=== PATIENT | male | born 1950 | race Caucasian/White ===

== ENCOUNTER 2018-02-23 21:05 | Emergency (ER) | payer MEDICARE, OTHER | END 2018-02-23 23:33 | disposition home or self-care (01) | LOC: EDH 21:05 | DX: S76.312A Strain of muscle, fascia and tendon of the posterior muscle group at thigh level, left thigh, initial encounter (principal); S70.11XA Contusion of right thigh, initial encounter; R60.0 Localized edema; E11.9 Type 2 diabetes mellitus without complications; E78.5 Hyperlipidemia, unspecified; J45.909 Unspecified asthma, uncomplicated; Z79.84 Long term (current) use of oral hypoglycemic drugs; Z79.899 Other long term (current) drug therapy; Z87.891 Personal history of nicotine dependence; W18.40XA Slipping, tripping and stumbling without falling, unspecified, initial encounter; Y93.89 Activity, other specified; Y92.89 Other specified places as the place of occurrence of the external cause; Y99.8 Other external cause status | CPT/HCPCS: 93971 ==

== ENCOUNTER 2018-12-25 12:22 | Emergency (ER) | payer OTHER | END 2018-12-25 13:10 | disposition home or self-care (01) | LOC: EDH 12:22 | DX: H11.31 Conjunctival hemorrhage, right eye (principal); E11.9 Type 2 diabetes mellitus without complications; J45.909 Unspecified asthma, uncomplicated; E78.5 Hyperlipidemia, unspecified; Z87.891 Personal history of nicotine dependence ==

== ENCOUNTER 2024-10-01 22:16 | Emergency (ER) | payer OTHER ==
[~2024-10-01] VITALS: Ht 170.2 cm; Wt 83.9 kg
--- NOTE | 2024-10-01 22:39 | ERN ---
General Chief Complaint: LOWER EXTREMITY EDEMA Stated Complaint: FALL Time Seen by MD: 22:21 Source: patient History of Present Illness Initial Comments Patient is a 74-year-old male coming in to be evaluated for right lower extremity pain. Patient states that he fell down eight days ago and states that he has some abrasions in his lower extremity and states that he was evaluated by migration specialist and no acute findings discovered. He states that today he started having more pain under the distal lower extremity in his here for further evaluation. Allergies: Coded Allergies: No Known Drug Allergies (Unverified Allergy, Unknown, 04/30/18) Past Medical History Past Medical History: Diabetes-Type II, Hypertension Past Surgical History: Other Surgical History Other: CATARACTS ROS Dictation CONSTITUTIONAL: No chills, no fever, no weakness, no diaphoresis, no malaise. HEAD/FACE: No signs of trauma. EENT: No eye pain, no blurred vision, no tearing, no double vision, no ear pain, no ear discharge, no nose pain, no nasal congestion, no throat pain, no throat swelling, no mouth pain. RESPIRATORY: No cough, no orthopnea, no SOB, no stridor, no wheezing. CARDIOVASCULAR: No chest pain, no edema, no palpitations, no syncope. GASTROINTESTINAL/ABDOMINAL: No abdominal pain, no constipation, no diarrhea, no nausea, no vomiting. GENITOURINARY: No abnormal discharge, no dysuria, no frequent urination, no hematuria. No complaints of pain in the genitals. MUSCULOSKELETAL: No back pain, no gout, no joint pain, joint swelling, muscle pain, no muscle stiffness, no neck pain. INTEGUMENTARY: No change in color, no change in hair/nails, no dryness, no lesion, no lumps, no rash. NEUROLOGICAL/PSYCH: No anxiety, not depressed, no emotional problem, no headache, no numbness, no pre-existing deficit, no history of seizures, no tremors, no weakness. HEMATOLOGIC/LYMPHATIC: Not anemic, no history of blood clots, no apparent bleeding, no bruising, glands not swollen. All Systems Negative, Except as Noted. Physical Exam Physical Exam Dictation VITAL SIGNS: Reviewed. GENERAL APPEARANCE: Alert, oriented x3, no acute distress, obese. HEAD AND FACE: Non-traumatic. EYES: PERRL, pink conjunctivas, eyelid no trauma, anterior chamber clear. EARS: Pinnas intact and no signs of trauma or erythema. Ear canals clear and no discharge. TMs no erythema. NOSE: No discharge, no bleeding. OROPHARYNX: Mouth normal, teeth no caries, tongue pink. Pharynx clear, no erythema. Tonsils no exudates, no abscesses noted. Mucous membrane moist. NECK: Supple, non-tender, no thyromegaly, no masses, no JVD, no bruits. BREAST: Deferred. CHEST: No tenderness, no crepitus, no paradoxical movement, no retractions. LUNGS: Clear, well-ventilated, symmetric, no rales, no wheezing, no rhonchi, no stridor, good breath sounds bilaterally. HEART: Regular rate, regular rhythm, no murmur, no gallops. VASCULAR: No peripheral edema. ABDOMEN: Soft, positive bowel sounds, nondistended, no guarding, nontender, no rebound, no masses no hepatomegaly, no splenomegaly, no Recio's sign, no hernias. RECTAL: Deferred. GENITAL: Deferred. NEUROLOGICAL: Normal speech, gross motor function intact, gross sensory function intact. MUSCULOSKELETAL: Neck nontender, full range of motion, back nontender, full range of motion. EXTREMITIES: Nontender, full range of motion. Right lower extremity pain on palpation ankle swelling bilateral SKIN: Color pink, dry, no turgor, no rash, no lacerations, no abrasions, no contusions. LYMPHATICS: Deferred. Results Laboratory and Microbiology Lab and Micro Result Laboratory Tests Test 10/01/24 22:23 10/01/24 22:34 White Blood Count 9.5 K/uL (4.8-10.8) Red Blood Count 3.60 MIL/uL (4.50-6.20) L Hemoglobin 11.3 g/dL (14.0-18.0) L Hematocrit 32.9 % (42-54) L Mean Corpuscular Volume 91.4 fL (79-99) Mean Corpuscular Hemoglobin 31.4 pg (27.0-33.0) Mean Corpuscular Hemoglobin Concent 34.3 g/dL (32.0-36.0) Red Cell Distribution Width 13.7 % (11.0-15.5) Platelet Count 379 K/uL (130-400) Mean Platelet Volume 9.3 fL (7.5-10.5) Immature Granulocyte % (Auto) 0.4 % (0-1) Neutrophils (%) (Auto) 52.4 % (40.0-77.0) Lymphocytes (%) (Auto) 35.3 % (21.0-51.0) Monocytes (%) (Auto) 8.4 % (3.0-13.0) Eosinophils (%) (Auto) 3.0 % (0.0-8.0) Basophils (%) (Auto) 0.5 % (0.0-5.0) Neutrophils # (Auto) 5.0 K/uL (1.8-7.7) Lymphocytes # (Auto) 3.4 K/uL (1.0-4.8) Monocytes # (Auto) 0.8 K/uL (0.1-1.0) Eosinophils # (Auto) 0.29 K/uL (0.00-0.70) Basophils # (Auto) 0.05 K/uL (0.00-0.20) Absolute Immature Granulocyte (auto 0.04 K/uL (0-1) Nucleated Red Blood Cells 0.0 % (0.0-0.19) Sodium Level 136 mmol/L (136-145) Potassium Level 3.9 mmol/L (3.5-5.1) Chloride Level 101 mmol/L (101-111) Carbon Dioxide Level 27 mmol/L (21-32) Blood Urea Nitrogen 32 mg/dL (7-18) H Creatinine 1.6 mg/dL (0.5-1.3) H Glomerular Filtration Rate Calc 45 mL/min (>90) Random Glucose 106 mg/dL (70-105) H Total Calcium 9.1 mg/dL (8.5-10.1) Total Creatine Kinase 230 U/L (21-232) Labs Reviewed?: Yes EKG/XRAY/US/CT/MRI X-RAY Comment X-ray right knee, ankle, foot-NAD Ultrasound Comment Arterial ultrasound right lower extremity-monophasic in the DP a otherwise unremarkable MDM MDM: Differential diagnosis: Fall, contusion, arteriosclerosis, PAD, PATIENT IS A 74-YEAR-OLD MALE COMING IN TO BE EVALUATED FOR RIGHT LOWER EXTREMITY PAIN AND SWELLING. PATIENT STATES HE WAS CONCERNED BECAUSE THE SWELLING HAS NOT IMPROVED HE HAS BEEN EVALUATED BY PCP AND FUEL SYSTEM MAINTENANCE SUPERVISOR AFTER HE FELL HE STATES HE GOTTEN ABRASION IN HIS RIGHT UPPER EXTREMITY IN HIS THE REASON HE WAS EVALUATED BY FUEL SYSTEM MAINTENANCE SUPERVISOR. ON PHYSICAL EXAM THERE IS SWELLING IN THE DISTAL LOWER EXTREMITY FOCUSED ON PLANTAR AREA WELL ANKLE AREA. X-RAYS AND ULTRASOUND DID NOT DISCLOSE ACUTE FINDINGS. LABORATORY WORKUP NEGATIVE FOR ACUTE FINDINGS WELL. PATIENT WILL BE DISCHARGED WITH A DIAGNOSIS OF LOWER EXTREMITY SWELLING WITH FALL. I DID ADVISE HIM TO STAY OFF HIS FEET USING THE RICE TECHNIQUE MUCH POSSIBLE. ED Course Orders Procedure Category Date Status Time Cbc With Differential LAB 10/01/24 Complete 22:22 Basic Metabolic Panel LAB 10/01/24 Complete 22:22 Creatine Kinase, Total LAB 10/01/24 Complete 22:22 Foot Comp 3+Vws Rt RAD 10/01/24 Taken 23:26 Ankle Comp 3vws Rt RAD 10/01/24 Taken 23:26 Knee 3vws Rt RAD 10/01/24 Taken 23:26 Us Arterial Unila Low US 10/01/24 Taken Ext Dupl 23:26 Vital Signs Date Time Temp Pulse Resp B/P (MAP) Pulse Ox O2 Delivery O2 Flow Rate FiO2 10/02/24 00:50 69 18 135/60 96 Room Air* 0 21 10/01/24 23:32 98.2 79 18 139/48 96 Room Air* 0 21 10/01/24 22:18 98.2 91 16 149/68 99 Room Air DX & DISP Disposition: Discharge Departure Impression: Primary Impression: Fall Additional Impressions: Lower extremity edema, Contusion of lower extremity Condition: Stable Scripts Diclofenac Sodium (Voltaren Arthritis Pain) 1 % Gel..gram. 4 GM TP BID for 7 Days, #1 TUBE Prov: RENEE MARTINEZ MD 10/02/24 Additional Instructions: FOLLOW-UP WITH PRIMARY CARE PROVIDER IN 1 TO 2 DAYS. TAKE MEDICATIONS DIRECTED HERE IN THE EMERGENCY ROOM. OKAY TO CONTINUE HOME MEDICATIONS UNLESS OTHERWISE DISCUSSED DURING YOUR VISIT IN THE EMERGENCY ROOM TODAY. RETURN TO YOUR NEAREST EMERGENCY ROOM IF SYMPTOMS WORSEN OR IF THERE IS NO IMPROVEMENT. CALL 911 IF YOU NEED IMMEDIATE ASSISTANCE. TAKE TYLENOL [id number] NEEDED AND IF NO CONTRAINDICATIONS ARE PRESENT. INCREASE ORAL HYDRATION. A WOUND CULTURE OR URINE CULTURE WAS ORDERED HERE IN THE EMERGENCY ROOM DEPARTMENT PLEASE FOLLOW-UP WITH PRIMARY CARE PROVIDER AND ADVISE THEM TO GET REPEAT PORTS FROM OUR FACILITY. IF YOU HAD ANY KIANNA WRAP/SPLINTS THAT WERE APPLIED HERE, PLEASE DO NOT REMOVE THEM UNTIL YOU SEE YOUR PRIMARY CARE OR SPECIALTY. REFERRALS: Referrals: CARMEN HERNÁNDEZ MD (PCP) Time of Disposition: 01:21 RENEE MARTINEZ MD Oct 01, 2024 22:39
[2024-10-01 22:48] LABS: BASOPHILS # (AUTO) 0.05 K/uL (0.00-0.20); BASOPHILS % (AUTO) 0.5 % (0.0-5.0); EOSINOPHILS # (AUTO) 0.29 K/uL (0.00-0.70); HEMATOCRIT 32.9 % (42-54); IMMATURE GRANULOCYTE ABSOLUTE 0.04 K/uL (0-1); LYMPHOCYTES # (AUTO) 3.4 K/uL (1.0-4.8); LYMPHOCYTES % (AUTO) 35.3 % (21.0-51.0); MEAN CORPUSCULAR HEMOGLOBIN 31.4 pg (27.0-33.0); MEAN CORPUSCULAR HGB CONC 34.3 g/dL (32.0-36.0); MEAN CORPUSCULAR VOLUME 91.4 fL (79-99); MONOCYTES # (AUTO) 0.8 K/uL (0.1-1.0); MONOCYTES % (AUTO) 8.4 % (3.0-13.0); NEUTROPHILS % (AUTO) 52.4 % (40.0-77.0); PLATELET COUNT (AUTO) 379 K/uL (130-400); RED CELL DISTRIBUTION WIDTH 13.7 % (11.0-15.5); WHITE BLOOD COUNT (AUTO) 9.5 K/uL (4.8-10.8)
[2024-10-01 22:55] LABS: CREATININE 1.6 mg/dL (0.5-1.3); POTASSIUM 3.9 mmol/L (3.5-5.1)
[2024-10-01 23:32] VITALS: TEMP 98.3
[2024-10-02 00:50] VITALS: BP 135/60; PULSE 69; RESP 18; O2SAT 96
[2024-10-02] MEDS ORDERED: DICL20GE TP (01:22)
--- NOTE | 2024-10-02 01:35 | NUR ---
PATIENT NOT FOUND IN ROOM FOR DISCHARGE INSTRUCTIONS, RESTROOMS AND LOBBY CHECKED; PATIENT NOT FOUND.
--- NOTE | 2024-10-02 01:47 | NUR ---
ATTEMPTED TO CONTACT PATIENT'S TELEPHONE FOR PRESCRIPTION, NO ANSWER
--- NOTE | 2024-10-02 08:12 | HMCIMG ---
RIGHT KNEE RADIOGRAPHS - 3 VIEWS INDICATION: Pain COMPARISON: None FINDINGS: AP, lateral, and oblique views. No acute fracture or dislocation identified. No significant joint effusion is present. Extensive calcific plaque along the outflow and runoff arterial benoit. IMPRESSION: No evidence for fracture or dislocation.
--- NOTE | 2024-10-02 08:12 | HMCIMG ---
RIGHT ANKLE RADIOGRAPHS - 3 VIEWS INDICATION: Pain COMPARISON: None FINDINGS: AP, lateral, and oblique views. Generalized mild to moderate soft tissue swelling. No acute fracture or subluxation identified. The talar dome is intact. Ankle mortise and tibial plafond are well maintained. No significant joint effusion is present. Mild calcific plaque along the runoff arterial benoit. 1 cm plantar calcaneal spur. Subcentimeter traction enthesophyte arises off the posterior calcaneus at the Achilles tendon attachment. IMPRESSION: No evidence for fracture or dislocation.
--- NOTE | 2024-10-02 08:13 | HMCIMG ---
RIGHT FOOT RADIOGRAPHS - 3 VIEWS INDICATION: Pain COMPARISON: None FINDINGS: AP, lateral, and oblique views. No acute fracture or subluxation identified. Midfoot alignment is well maintained. 1 cm plantar calcaneal spur. Subcentimeter traction enthesophyte arises off the posterior calcaneus at the Achilles tendon attachment. IMPRESSION: No evidence for fracture or subluxation.
--- NOTE | 2024-10-02 08:19 | HMCIMG ---
ULTRASOUND ARTERIAL DUPLEX RIGHT LOWER EXTREMITY, UNILATERAL INDICATION: Peripheral vascular disease TECHNIQUE: Routine grayscale, color Doppler, and power Doppler ultrasound of the right lower extremity arteries were obtained. COMPARISON: None FINDINGS: Velocities in cm/sec [employer]: 176 SFA: Prox 99, Mid 181, Distal 144 Popliteal 54 distally ; mild to moderate calcific plaque along the popliteal arterial benoit. Anterior Tibial 79 distally Posterior Tibial 91 Dorsalis Pedis 34 Triphasic flow along the right lower extremity arterial system except for biphasic along the right popliteal artery and dorsalis pedis artery. IMPRESSION: Mild to moderate right popliteal arterial stenosis without evidence for high-grade flow-rate limiting stenosis or occlusion. Parameters as reported.
== END 2024-10-02 01:48 | disposition left against medical advice (07) ==
LOC: EDH 22:16
DX: S80.11XA Contusion of right lower leg, initial encounter (principal); R60.0 Localized edema; E11.9 Type 2 diabetes mellitus without complications; I10 Essential (primary) hypertension; X58.XXXA Exposure to other specified factors, initial encounter; Y93.89 Activity, other specified; Y92.89 Other specified places as the place of occurrence of the external cause; Y99.8 Other external cause status
CPT/HCPCS: 36415; 73562; 73610; 73630; 80048; 82550; 85025; 93926; 99284